=== PATIENT | male | born 1960 | race African-American/Black ===

== ENCOUNTER 2017-04-06 07:10 | Emergency (ER) | payer MEDICAID ==
[~2017-04-06] VITALS: Ht 180.3 cm; Wt 120.0 kg
[2017-04-06] MEDS ORDERED: TAMSULOSIN HCL 0.4MG SR CAPSULE PO ONE (08:00)
[2017-04-06 08:25] LABS: CLARITY URINE CLOUDY (CLEAR); COLOR URINE YELLOW (YELLOW); KETONES URINE NEGATIVE (NEGATIVE); LEUKOCYTE ESTERASE URINE NEGATIVE (NEGATIVE); NITRITE URINE NEGATIVE (NEGATIVE); OCCULT BLOOD URINE NEGATIVE (NEGATIVE); PROTEIN URINE NEGATIVE (NEGATIVE); SPECIFIC GRAVITY URINE 1.021 (1.005-1.030)
[2017-04-06 11:53] VITALS: BP 145/109
== END 2017-04-06 11:57 | disposition home or self-care (01) ==
LOC: ER 07:51
DX: R30.0 Dysuria (principal); I10 Essential (primary) hypertension; F17.200 Nicotine dependence, unspecified, uncomplicated
CPT/HCPCS: 51702; 81003; 87086; 99284; A4315

== ENCOUNTER 2017-09-23 02:04 | Emergency (ER) | payer MEDICAID ==
[~2017-09-23] VITALS: Ht 182.9 cm; Wt 100.0 kg
[2017-09-23] MEDS ORDERED: LIDOCAINE HCL 1% 20ML VIAL (Pyxis) INJ INFIL ONE (03:00)
[2017-09-23] MEDS ORDERED: BACITRACIN ZINC OINT UDPKT TOP ONE (03:00)
[2017-09-23] MEDS ORDERED: LIDOCAINE HCL/PF 1% 10 MG/ML 5ML VIAL IJ NR (03:15)
[2017-09-23 04:49] VITALS: BP 165/105
== END 2017-09-23 04:54 | disposition home or self-care (01) ==
LOC: ER 02:04
DX: S46.222A Laceration of muscle, fascia and tendon of other parts of biceps, left arm, initial encounter (principal); S41.012A Laceration without foreign body of left shoulder, initial encounter; T14.8XXA Other injury of unspecified body region, initial encounter; Y92.410 Unspecified street and highway as the place of occurrence of the external cause; F14.10 Cocaine abuse, uncomplicated; F17.210 Nicotine dependence, cigarettes, uncomplicated; I10 Essential (primary) hypertension; V19.49XA Pedal cycle driver injured in collision with other motor vehicles in traffic accident, initial encounter; Y93.55 Activity, bike riding
CPT/HCPCS: 12004; 73060; 99284; J3490; Z7610

== ENCOUNTER 2017-09-25 12:46 | Emergency (ER) | payer MEDICAID ==
[~2017-09-25] VITALS: Ht 182.9 cm; Wt 100.0 kg
[2017-09-25] MEDS ORDERED: HYDROCODONE/ACETAMINOPHEN 5/325MG TABLET PO ONE (14:30)
[2017-09-25] MEDS ORDERED: BACITRACIN ZINC OINT UDPKT TOP ONE (14:30)
[2017-09-25 14:37] VITALS: BP 135/81
== END 2017-09-25 16:19 | disposition home or self-care (01) ==
LOC: ER 12:46
DX: Z48.00 Encounter for change or removal of nonsurgical wound dressing (principal); I10 Essential (primary) hypertension; F17.210 Nicotine dependence, cigarettes, uncomplicated; F14.10 Cocaine abuse, uncomplicated
CPT/HCPCS: 99283

== ENCOUNTER 2017-09-27 11:43 | Emergency (ER) | payer MEDICAID ==
[~2017-09-27] VITALS: Ht 195.6 cm; Wt 101.0 kg
[2017-09-27 12:30] VITALS: BP 142/96
[2017-09-27] MEDS ORDERED: BACITRACIN ZINC OINT UDPKT TOP ONE (12:30)
[2017-09-27] MEDS ORDERED: HYDROCODONE/ACETAMINOPHEN 5/325MG TABLET PO ONE (12:30)
== END 2017-09-27 12:39 | disposition home or self-care (01) ==
LOC: ER 11:43
DX: S40.812D Abrasion of left upper arm, subsequent encounter (principal); F31.9 Bipolar disorder, unspecified; I10 Essential (primary) hypertension; F17.200 Nicotine dependence, unspecified, uncomplicated; F12.10 Cannabis abuse, uncomplicated; F14.10 Cocaine abuse, uncomplicated; X58.XXXD Exposure to other specified factors, subsequent encounter
CPT/HCPCS: 99283

== ENCOUNTER 2017-10-05 13:36 | Emergency (ER) | payer MEDICAID ==
[~2017-10-05] VITALS: Ht 182.9 cm; Wt 100.0 kg
[2017-10-05] MEDS ORDERED: TETANUS, DIPHTHERIA, PERTUSSIS VAC/PF 0.5ML (>7YR OLD) IM ONE (14:00)
[2017-10-05] MEDS ORDERED: BACITRACIN ZINC OINT UDPKT TOP ONE (14:15)
[2017-10-05 14:30] VITALS: BP 156/104
== END 2017-10-05 15:03 | disposition home or self-care (01) ==
LOC: ER 13:36
DX: S41.112D Laceration without foreign body of left upper arm, subsequent encounter (principal); L03.114 Cellulitis of left upper limb; L08.9 Local infection of the skin and subcutaneous tissue, unspecified; X58.XXXD Exposure to other specified factors, subsequent encounter; Z23 Encounter for immunization; I10 Essential (primary) hypertension
CPT/HCPCS: 90471; 90715; 99283; Z7610

== ENCOUNTER 2017-11-19 13:12 | Emergency (ER) | payer MEDICAID ==
[~2017-11-19] VITALS: Ht 180.3 cm; Wt 101.0 kg
[2017-11-19] MEDS ORDERED: TAMSULOSIN HCL 0.4MG SR CAPSULE PO ONE (16:45)
[2017-11-19 17:13] LABS: CLARITY URINE TURBID (CLEAR); COLOR URINE DARK YELLOW (YELLOW); KETONES URINE TRACE (NEGATIVE); LEUKOCYTE ESTERASE URINE 3+ (NEGATIVE); NITRITE URINE POSITIVE (NEGATIVE); OCCULT BLOOD URINE 2+ (NEGATIVE); PH URINE 5.5 (4.5-8.0); PROTEIN URINE 2+ (NEGATIVE); SPECIFIC GRAVITY URINE 1.024 (1.005-1.030)
[2017-11-19 18:34] VITALS: BP 142/78
== END 2017-11-19 18:38 | disposition home or self-care (01) ==
LOC: ER 14:41
DX: N39.0 Urinary tract infection, site not specified (principal); N40.0 Benign prostatic hyperplasia without lower urinary tract symptoms; I10 Essential (primary) hypertension; F31.9 Bipolar disorder, unspecified; F12.10 Cannabis abuse, uncomplicated; F14.10 Cocaine abuse, uncomplicated; F17.200 Nicotine dependence, unspecified, uncomplicated
CPT/HCPCS: 87077; 87186; 99284

== ENCOUNTER 2018-01-07 10:11 | Emergency (ER) | payer MEDICAID ==
[~2018-01-07] VITALS: Ht 182.9 cm; Wt 101.0 kg
[2018-01-07 12:29] LABS: CLARITY URINE CLOUDY (CLEAR); COLOR URINE YELLOW (YELLOW); KETONES URINE 1+ (NEGATIVE); LEUKOCYTE ESTERASE URINE NEGATIVE (NEGATIVE); NITRITE URINE NEGATIVE (NEGATIVE); OCCULT BLOOD URINE NEGATIVE (NEGATIVE); PH URINE 6.5 (4.5-8.0); PROTEIN URINE NEGATIVE (NEGATIVE); SPECIFIC GRAVITY URINE 1.026 (1.005-1.030)
[2018-01-07 12:45] VITALS: BP 159/100
== END 2018-01-07 12:46 | disposition home or self-care (01) ==
LOC: ER 10:33
DX: R30.0 Dysuria (principal); N40.0 Benign prostatic hyperplasia without lower urinary tract symptoms; I10 Essential (primary) hypertension; F31.9 Bipolar disorder, unspecified; F17.200 Nicotine dependence, unspecified, uncomplicated; F12.10 Cannabis abuse, uncomplicated; F14.10 Cocaine abuse, uncomplicated
CPT/HCPCS: 99283

== ENCOUNTER 2018-03-09 09:45 | Emergency (ER) | payer MEDICAID ==
[~2018-03-09] VITALS: Ht 180.3 cm; Wt 102.0 kg
[2018-03-09 09:55] VITALS: BP 159/116
[2018-03-09] MEDS ORDERED: TAMSULOSIN HCL 0.4MG SR CAPSULE PO ONE (10:30)
[2018-03-09] MEDS ORDERED: IBUPROFEN 600MG TABLET PO ONE (11:30)
[2018-03-09] MEDS ORDERED: ACETAMINOPHEN WITH CODEINE 300/30MG TABLET PO ONE (11:45)
[2018-03-09 11:56] LABS: CLARITY URINE CLEAR (CLEAR); COLOR URINE YELLOW (YELLOW); KETONES URINE NEGATIVE (NEGATIVE); LEUKOCYTE ESTERASE URINE NEGATIVE (NEGATIVE); NITRITE URINE NEGATIVE (NEGATIVE); OCCULT BLOOD URINE NEGATIVE (NEGATIVE); PH URINE 7.5 (4.5-8.0); PROTEIN URINE NEGATIVE (NEGATIVE); SPECIFIC GRAVITY URINE 1.013 (1.005-1.030); UROBILINOGEN URINE 0.2 E.U./dL (0.2-1.0)
== END 2018-03-09 12:00 | disposition home or self-care (01) ==
LOC: ER 10:16
DX: N40.0 Benign prostatic hyperplasia without lower urinary tract symptoms (principal); F17.200 Nicotine dependence, unspecified, uncomplicated; I10 Essential (primary) hypertension
CPT/HCPCS: 99283; 99406

== ENCOUNTER 2018-09-16 14:27 | Emergency (ER) | payer MEDICAID ==
[~2018-09-16] VITALS: Ht 182.9 cm; Wt 100.0 kg
[2018-09-16] MEDS ORDERED: DEXAMETHASONE 10 MG/ML VIAL IM ONE (19:00)
[2018-09-16] MEDS ORDERED: KETOROLAC 30MG/ML VIAL IM ONE (19:00)
[2018-09-16 20:11] VITALS: BP 158/89
== END 2018-09-16 20:11 | disposition home or self-care (01) ==
LOC: ER 14:27
DX: G89.29 Other chronic pain (principal); M54.5 Low back pain
CPT/HCPCS: 96372; 99283; J1100; J1885

== ENCOUNTER 2018-10-13 09:24 | Emergency (ER) | payer MEDICAID ==
[~2018-10-13] VITALS: Ht 175.3 cm; Wt 85.0 kg
[2018-10-13] MEDS ORDERED: TAMSULOSIN HCL 0.4MG SR CAPSULE PO ONE (13:30)
[2018-10-13 14:17] VITALS: BP 141/88
[2018-10-13 14:32] LABS: CLARITY URINE CLEAR (CLEAR); COLOR URINE YELLOW (YELLOW); KETONES URINE TRACE (NEGATIVE); LEUKOCYTE ESTERASE URINE 3+ (NEGATIVE); NITRITE URINE POSITIVE (NEGATIVE); OCCULT BLOOD URINE NEGATIVE (NEGATIVE); PH URINE 6.5 (4.5-8.0); PROTEIN URINE NEGATIVE (NEGATIVE); SPECIFIC GRAVITY URINE 1.014 (1.005-1.030)
== END 2018-10-13 14:18 | disposition home or self-care (01) ==
LOC: ER 09:24
DX: N40.1 Benign prostatic hyperplasia with lower urinary tract symptoms (principal); R33.8 Other retention of urine; I10 Essential (primary) hypertension
CPT/HCPCS: 81003; 87077; 87186; 99283

== ENCOUNTER 2018-10-28 08:07 | Emergency (ER) | payer MEDICAID ==
[~2018-10-28] VITALS: Ht 177.8 cm; Wt 100.0 kg
[2018-10-28] MEDS ORDERED: ACETAMINOPHEN 325MG TABLET PO STA (09:45)
[2018-10-28] MEDS ORDERED: CEFTRIAXONE 1 G PREMIX 50 ML IV ONE (09:45)
[2018-10-28] MEDS ORDERED: DOXYCYCLINE HYCLATE 100 MG/VIAL IV ONE (09:45)
[2018-10-28] MEDS ORDERED: IPRATROPIUM BROMIDE (0.02%) 0.5MG/2.5ML NEB HHN STA (09:45)
[2018-10-28] MEDS ORDERED: PREDNISONE 20MG TABLET PO STA (09:45)
[2018-10-28] MEDS ORDERED: ALBUTEROL (0.083%) 2.5MG/3ML NEB HHN STA (09:45)
[2018-10-28] MEDS ORDERED: DOXYCYCLINE 100MG in DEXTROSE 5% WATER 100ML IV NR (10:00)
[2018-10-28 10:11] LABS: HEMATOCRIT. 41.5 % (42.0-52.0); HEMOGLOBIN. 13.8 g/dL (14.0-18.0); MEAN CORPUSCULAR HEMOGLOBIN 32.6 pg (28.0-32.0); MEAN CORPUSCULAR VOLUME 98.1 fL (80.0-94.0); MEAN PLATELET VOLUME 8.6 fl (7.4-10.4); PLATELET 262 x1000/uL (130-400); RED BLOOD CELL COUNT 4.23 mill/uL (4.7-6.1); RED CELL DISTRIBUTION WIDTH 14.1 % (11.6-14.6)
[2018-10-28 10:15] LABS: CHLORIDE 105 mEq/L (98-107); PROTHROMBIN TIME 10.8 sec (9.6-11.0)
[2018-10-28 10:46] LABS: PLATELET ESTIMATE NORMAL
[2018-10-28 12:50] VITALS: BP 150/89
== END 2018-10-28 12:57 | disposition home or self-care (01) ==
LOC: ER 08:07 → CANBEDREQ 15:25
DX: I11.0 Hypertensive heart disease with heart failure (principal); I50.9 Heart failure, unspecified; F32.9 Major depressive disorder, single episode, unspecified; F20.9 Schizophrenia, unspecified; R05 Cough; R07.9 Chest pain, unspecified; R09.81 Nasal congestion
CPT/HCPCS: 36415; 71045; 80053; 83605; 83880; 84145; 84484; 85025; 85610; 87040; 93005; 94640; 96365; 96367; 99284; J0696; J3490; J7060; J7512; J7611; Z7610

== ENCOUNTER 2018-12-16 20:48 | Emergency (ER) | payer MEDICAID ==
[~2018-12-16] VITALS: Ht 182.9 cm; Wt 102.0 kg
[2018-12-16] MEDS ORDERED: TAMSULOSIN HCL 0.4MG SR CAPSULE PO ONE (22:00)
[2018-12-16] MEDS ORDERED: ACETAMINOPHEN 325MG TABLET PO ONE (22:45)
[2018-12-16 22:59] LABS: CLARITY URINE CLEAR (CLEAR); COLOR URINE DARK YELLOW (YELLOW); KETONES URINE TRACE (NEGATIVE); LEUKOCYTE ESTERASE URINE 2+ (NEGATIVE); NITRITE URINE NEGATIVE (NEGATIVE); OCCULT BLOOD URINE NEGATIVE (NEGATIVE); PH URINE 6.5 (4.5-8.0); PROTEIN URINE 1+ (NEGATIVE); SPECIFIC GRAVITY URINE 1.022 (1.005-1.030)
[2018-12-16 23:55] VITALS: BP 137/92
== END 2018-12-17 00:45 | disposition home or self-care (01) ==
LOC: ER 20:48
DX: N39.0 Urinary tract infection, site not specified (principal); I10 Essential (primary) hypertension; F17.210 Nicotine dependence, cigarettes, uncomplicated; Z71.6 Tobacco abuse counseling; F12.90 Cannabis use, unspecified, uncomplicated
CPT/HCPCS: 81003; 99284

== ENCOUNTER 2019-02-27 09:24 | Inpatient (IN) | payer MEDICAID ==
[~2019-02-27] VITALS: Ht 188 cm; Wt 111.1 kg
[2019-02-27] MEDS ORDERED: AMLODIPINE 5MG TABLET PO ONE (11:45)
[2019-02-27] MEDS ORDERED: LISINOPRIL 5MG TABLET PO ONE (11:45)
[2019-02-27 14:18] LABS: BASOPHILS % 1.7 % (0.0-2.0); EOSINOPHILS % 2.5 % (0.0-5.0); HEMATOCRIT. 40.3 % (42.0-52.0); HEMOGLOBIN. 13.2 g/dL (14.0-18.0); MEAN CORPUSCULAR HEMOGLOBIN 31.7 pg (28.0-32.0); MEAN CORPUSCULAR VOLUME 96.7 fL (80.0-94.0); MONOCYTES % 8.3 % (2.0-8.0); NEUTROPHILS % 67.5 % (40.0-76.0); PLATELET 271 x1000/uL (130-400); RED BLOOD CELL COUNT 4.16 mill/uL (4.7-6.1); RED CELL DISTRIBUTION WIDTH 14.6 % (11.6-14.6)
[2019-02-27 14:30] LABS: CHLORIDE 109 mEq/L (98-107)
[2019-02-27] MEDS ORDERED: FUROSEMIDE 20MG TABLET PO ONE (18:00)
[2019-02-27] MEDS ORDERED: HYDROCODONE/ACETAMINOPHEN 5/325MG TABLET PO PRN (19:30)
[2019-02-27] MEDS ORDERED: ENOXAPARIN 40MG/0.4ML SYR SUBCUT SCH (19:30)
[2019-02-27] MEDS ORDERED: MORPHINE SULFATE 2 MG/ML CPJ (NOT FOR IM USE) IV PRN (19:30)
[2019-02-27] MEDS ORDERED: MAGNESIUM/ALUMINUM HYDROXIDE/SIMETHICONE 30ML UDC PO PRN (19:30)
[2019-02-27] MEDS ORDERED: NA PHOS,M-B/NA PHOS,DI-BA ENEMA 118ML PR PRN (19:30)
[2019-02-27] MEDS ORDERED: IPRATROPIUM/ALBUTEROL 0.5-3(2.5)MG/3ML NEB NEB PRN (19:30)
[2019-02-27] MEDS ORDERED: CLONIDINE 0.1MG TABLET PO PRN (19:30)
[2019-02-27] MEDS ORDERED: GUAIFENESIN 200MG/10ML SUGAR FREE UDC PO PRN (19:30)
[2019-02-27] MEDS ORDERED: DIPHENHYDRAMINE 50MG/ML VIAL IV PRN (19:30)
[2019-02-27] MEDS ORDERED: ACETAMINOPHEN 325MG TABLET PO PRN (19:30)
[2019-02-27] MEDS ORDERED: ONDANSETRON HCL 4MG/2ML INJ IV PRN (19:30)
[2019-02-27] MEDS ORDERED: LORAZEPAM 0.5MG TABLET PO PRN (19:30)
[2019-02-27] MEDS ORDERED: DOCUSATE SODIUM 100MG CAPSULE PO PRN (19:30)
[2019-02-27 19:48] LABS: CLARITY URINE CLEAR (CLEAR); COLOR URINE YELLOW (YELLOW); KETONES URINE NEGATIVE (NEGATIVE); LEUKOCYTE ESTERASE URINE NEGATIVE (NEGATIVE); NITRITE URINE NEGATIVE (NEGATIVE); OCCULT BLOOD URINE NEGATIVE (NEGATIVE); PH URINE 6.5 (4.5-8.0); PROTEIN URINE NEGATIVE (NEGATIVE); SPECIFIC GRAVITY URINE 1.022 (1.005-1.030); UROBILINOGEN URINE 0.2 E.U./dL (0.2-1.0)
[2019-02-27] MEDS ORDERED: QUETIAPINE FUMARATE 50MG TABLET PO ONE (20:00)
[2019-02-27 20:46] LABS: *AMPHETAMINES SCREEN URINE NEGATIVE (NEGATIVE)
[2019-02-27 20:47] LABS: *BARBITURATES SCREEN URINE NEGATIVE (NEGATIVE); *BENZODIAZEPINES SCREEN URINE NEGATIVE (NEGATIVE); *COCAINE SCREEN URINE PRESUMTIVE POSITIVE (NEGATIVE); CANNABINOID URINE SCREEN NEGATIVE (NEGATIVE); METHADONE URINE SCREEN NEGATIVE (NEGATIVE); OPIATES URINE SCREEN NEGATIVE (NEGATIVE); PHENCYCLIDINE URINE SCREEN PRESUMTIVE POSITIVE (NEGATIVE)
[2019-02-27 22:24] VITALS: BP 145/108
[2019-02-27 22:41] VITALS: BP 145/108
[2019-02-27] MEDS ORDERED: QUET300T2 PO (23:52)
[2019-02-27] MEDS ORDERED: TEMA15CA5 PO (23:52)
[2019-02-27] MEDS ORDERED: BENZ1TAB7 GT (23:52)
[2019-02-28] VITALS: BP 139/108
[2019-02-28 00:25] LABS: CHLORIDE 108 mEq/L (98-107)
[2019-02-28 04:00] VITALS: BP 139/106
[2019-02-28 06:35] LABS: BASOPHILS % 1.3 % (0.0-2.0); EOSINOPHILS % 2.4 % (0.0-5.0); HEMATOCRIT. 42.6 % (42.0-52.0); HEMOGLOBIN. 14.3 g/dL (14.0-18.0); MEAN CORPUSCULAR HEMOGLOBIN 32.1 pg (28.0-32.0); MEAN CORPUSCULAR VOLUME 95.7 fL (80.0-94.0); MEAN PLATELET VOLUME 8.2 fl (7.4-10.4); MONOCYTES % 7.8 % (2.0-8.0); NEUTROPHILS % 70.5 % (40.0-76.0); PLATELET 309 x1000/uL (130-400); RED BLOOD CELL COUNT 4.45 mill/uL (4.7-6.1); RED CELL DISTRIBUTION WIDTH 14.6 % (11.6-14.6)
[2019-02-28 06:56] LABS: CHLORIDE 104 mEq/L (98-107)
[2019-02-28 07:01] LABS: LDL CHOLESTEROL 124 mg/dL (5-100)
[2019-02-28 07:02] LABS: HDL CHOLESTEROL 53 mg/dL (40-59)
[2019-02-28] MEDS: FUROSEMIDE 40MG/4ML VIAL IV SCH (08:53)
[2019-02-28] MEDS: ASPIRIN 81MG EC TABLET PO SCH (08:54)
[2019-02-28] MEDS: ENOXAPARIN 30MG/0.3ML SYR SUBCUT SCH ×2 (08:55→21:14)
[2019-02-28] MEDS ORDERED: PNEUMOCOCCAL 23-VAL P-SAC VAC 0.5 ML IM ONE (09:00)
[2019-02-28] MEDS ORDERED: INFLUENZA VIRUS VACCINE(AFLURIA) 0.5ML SYR IM ONE (09:00)
[2019-02-28 12:00] VITALS: BP 123/85
[2019-02-28 16:00] VITALS: BP 148/94
[2019-02-28 18:10] LABS: T4 FREE 0.99 ng/dL (0.76-1.46)
[2019-02-28 20:00] VITALS: BP 145/114
[2019-02-28] MEDS ORDERED: BENZTROPINE MESYLATE 2MG TABLET PO SCH ×2 (21:00→22:00)
[2019-02-28] MEDS ORDERED: QUETIAPINE FUMARATE 50MG TABLET PO SCH (21:00)
[2019-02-28] MEDS ORDERED: TEMAZEPAM 15MG CAPSULE PO SCH (21:00)
[2019-03-01] VITALS: BP 134/96
[2019-03-01 00:39] LABS: CREATINE KINASE MB FRACTION 4.4 ng/mL (0.5-3.6)
[2019-03-01 04:00] VITALS: BP 147/115
[2019-03-01 07:12] LABS: CREATINE KINASE MB FRACTION 4.6 ng/mL (0.5-3.6)
[2019-03-01 08:00] VITALS: BP 130/90
[2019-03-01] MEDS: ASPIRIN 81MG EC TABLET PO SCH (08:09)
[2019-03-01] MEDS: FUROSEMIDE 40MG/4ML VIAL IV SCH (08:09)
[2019-03-01] MEDS: ENOXAPARIN 30MG/0.3ML SYR SUBCUT SCH (08:10)
[2019-03-01] MEDS ORDERED: CLOPIDOGREL 75MG TABLET PO SCH (09:00)
== END 2019-03-01 10:45 | disposition left against medical advice (07) | DRG 243 ==
LOC: ER 09:24 → EDBEDREQ 19:24 → 5WST 19:58 → EDBEDREQTM 20:05 → EDBEDREQ 20:05 → ENRESERV 20:10
PROVIDERS: ADMIT Internal Medicine; ATTEND Internal Medicine
DX: K21.9 Gastro-esophageal reflux disease without esophagitis (principal); I24.9 Acute ischemic heart disease, unspecified; I11.0 Hypertensive heart disease with heart failure; I50.9 Heart failure, unspecified; F20.9 Schizophrenia, unspecified; R16.0 Hepatomegaly, not elsewhere classified; E78.5 Hyperlipidemia, unspecified; F17.200 Nicotine dependence, unspecified, uncomplicated; F41.9 Anxiety disorder, unspecified; Z53.29 Procedure and treatment not carried out because of patient's decision for other reasons; I25.10 Atherosclerotic heart disease of native coronary artery without angina pectoris; M19.90 Unspecified osteoarthritis, unspecified site; G89.29 Other chronic pain; M54.5 Low back pain; F31.9 Bipolar disorder, unspecified; F17.210 Nicotine dependence, cigarettes, uncomplicated; F12.90 Cannabis use, unspecified, uncomplicated; F14.90 Cocaine use, unspecified, uncomplicated; Z91.11 Patient's noncompliance with dietary regimen; Z91.14 Patient's other noncompliance with medication regimen; Z79.899 Other long term (current) drug therapy
CPT/HCPCS: 36415; 71250; 80048; 80053; 80061; 80305; 81003; 82550; 82553; 83036; 83605; 83735; 83880; 84439; 84443; 84484; 85025; 85379; 85651; 90686; 90732; 93005; 99285; J1650; J1940

== ENCOUNTER 2019-05-08 09:51 | Emergency (ER) | payer MEDICAID ==
[~2019-05-08] VITALS: Ht 182.9 cm; Wt 106.0 kg
[~2019-05-08 09:51] MED LIST: BENZ1TAB7 GT; QUET300T2 PO; TEMA15CA5 PO
[2019-05-08] MEDS ORDERED: depakote (10:18)
[2019-05-08 11:49] LABS: BASOPHILS % 1.1 % (0.0-2.0); EOSINOPHILS % 1.4 % (0.0-5.0); HEMATOCRIT. 39.3 % (42.0-52.0); HEMOGLOBIN. 13.5 g/dL (14.0-18.0); LYMPHOCYTES % 21.4 % (20.0-50.0); MEAN CORPUSCULAR HEMOGLOBIN 32.6 pg (28.0-32.0); MEAN CORPUSCULAR VOLUME 94.7 fL (80.0-94.0); MEAN PLATELET VOLUME 7.9 fl (7.4-10.4); MONOCYTES % 9.1 % (2.0-8.0); PLATELET 238 x1000/uL (130-400); RED BLOOD CELL COUNT 4.15 mill/uL (4.7-6.1); RED CELL DISTRIBUTION WIDTH 14.4 % (11.6-14.6)
[2019-05-08 11:58] LABS: CHLORIDE 106 mEq/L (98-107)
[2019-05-08 12:02] LABS: ETHANOL BLOOD < 10 mg/dL
[2019-05-08 12:32] LABS: *AMPHETAMINES SCREEN URINE PRESUMTIVE POSITIVE (NEGATIVE); *BARBITURATES SCREEN URINE NEGATIVE (NEGATIVE); *BENZODIAZEPINES SCREEN URINE NEGATIVE (NEGATIVE); *COCAINE SCREEN URINE PRESUMTIVE POSITIVE (NEGATIVE)
[2019-05-08 12:33] LABS: CANNABINOID URINE SCREEN PRESUMTIVE POSITIVE (NEGATIVE); METHADONE URINE SCREEN NEGATIVE (NEGATIVE); OPIATES URINE SCREEN NEGATIVE (NEGATIVE); PHENCYCLIDINE URINE SCREEN PRESUMTIVE POSITIVE (NEGATIVE)
[2019-05-08 16:36] VITALS: BP 130/71
== END 2019-05-08 16:39 | disposition home or self-care (01) ==
LOC: ER 09:51
DX: R07.89 Other chest pain (principal); R42 Dizziness and giddiness; F31.9 Bipolar disorder, unspecified; Z79.899 Other long term (current) drug therapy
CPT/HCPCS: 36415; 71045; 80053; 80305; 80320; 83880; 84484; 85025; 93005; 99285; G0480

== ENCOUNTER 2020-05-14 20:49 | Emergency (ER) | payer MEDICAID ==
[~2020-05-14] VITALS: Ht 182.9 cm; Wt 114.1 kg
[~2020-05-14 20:49] MED LIST changes: +QUET100T PO; +depakote
[2020-05-14] MEDS ORDERED: TAMS-11 PO (21:34)
[2020-05-14 21:45] VITALS: BP 137/101
[2020-05-14] MEDS ORDERED: TAMSULOSIN HCL 0.4MG SR CAPSULE PO ONE (21:45)
== END 2020-05-14 22:02 | disposition home or self-care (01) ==
LOC: ER 20:49
DX: N40.1 Benign prostatic hyperplasia with lower urinary tract symptoms (principal); R33.8 Other retention of urine
CPT/HCPCS: 93005; 99283